=== PATIENT | female | born 1950 | race Caucasian/White ===

== ENCOUNTER 2024-01-21 12:16 | Emergency (ER) | payer MEDICARE | END 2024-01-21 15:47 | disposition home or self-care (01) | LOC: JP.ED 12:16 | DX: R79.89 Other specified abnormal findings of blood chemistry (principal); Z90.710 Acquired absence of both cervix and uterus; Z79.899 Other long term (current) drug therapy | CPT/HCPCS: 93971-LT; 99283 ==